=== PATIENT | male | born 2005 | race Caucasian/White ===

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

== ENCOUNTER 2024-05-27 06:17 | Emergency (ER) | payer BC, SELFPAY ==
[2024-05-27 06:18] VITALS: BP 146/93; PULSE 135; RESP 19; TEMP 37.3; O2SAT 92; BMI 40.9
--- NOTE | 2024-05-27 06:52 | EKG12_ITS ---
Test Reason : CP Blood Pressure : */* mmHG Vent. Rate : 135 BPM Atrial Rate : 135 BPM P-R Int : 134 ms QRS Dur : 82 ms QT Int : 290 ms P-R-T Axes : 75 80 38 degrees QTcB Int : 435 ms Sinus tachycardia Otherwise normal ECG Confirmed by LINDA RUSSELL, TAYLOR ([id number]), avid editor SADE BETHEA ([id number]) on 05/28/2024 10:53:10 AM Referred By: Confirmed By: TAYLOR MCKEON MD
--- NOTE | 2024-05-27 07:05 | RAD_ITS ---
EXAM: XR CHEST, 2 VIEWS CLINICAL INDICATION: cough TECHNIQUE: Frontal and lateral views of the chest. COMPARISON: 04/18/2016 FINDINGS: LUNGS AND PLEURAL SPACES: Left lower lobe and/or lingular pulmonary opacities may be pneumonia rather than atelectasis. No pneumothorax. No effusion. HEART: No significant abnormality. Cardiac silhouette not enlarged. MEDIASTINUM: Central airways and mediastinal contour are unremarkable. BONES/JOINTS: No significant abnormality. No acute fracture. SOFT TISSUES: No significant abnormality. TUBES, LINES AND DEVICES: Left-sided cardiac device. RAD/Chest PA and Lateral IMPRESSION: Left lower lobe and/or lingular pulmonary opacities may be pneumonia rather than atelectasis. Electronically Signed: Arvind Raphael DO at 8:26 EST ,
[2024-05-27 07:18] VITALS: BP 118/71; PULSE 118; RESP 17; O2SAT 94
[2024-05-27 07:19] LABS: Absolute Neutrophil Count 6.4 X10^3/uL (2.0-7.7); Basophil# 0.06 X10^3/uL; Basophil% 0.6 % (0-1); Eosinophil# 0.24 X10^3/uL; Eosinophils% 2.5 % (0-5); Hematocrit 42.6 % (40-54); Hemoglobin 14.2 g/dL (13.0-16.5); Lymphocyte % 15.3 % (19-41); Mean Corp Hgb Conc 33.3 g/dL (32-36); Mean Corpuscular Hgb 28.6 pg (27.0-32.0); Mean Corpuscular Volume 85.9 fL (80-94); Mean Platelet Vol. 11.1 fl (6.2-12.0); Monocyte# 1.55 X10^3/uL; Monocyte% 15.8 % (0-10); NRBC Flagged by Analyzer 0 % (0-5); Neutrophil # 6.41 X10^3/uL (2.7-7.7); Neutrophil % 65.6 % (47-70); POSITIVE DIFFERENTIAL YES; Platelet Count 217 K/mm3 (150-450); RBC Distribution Width CV 12.9 % (11.6-14.6); RBC Distribution Width SD 40.2 fl (35.1-43.9); Red Blood Count 4.96 M/mm3 (4.6-6.2); White Blood Count 9.8 K/mm3 (4.4-11.0)
[2024-05-27] MEDS: 0.9% Normal Saline (1000mL) 1,000 ML 999 ML IV (07:21)
[2024-05-27 07:25] LABS: Differential Indicated SCAN CRITERIA MET
[2024-05-27 07:36] LABS: Anion Gap 9 (5-15); BUN 10 mg/dL (7-18); BUN/Creat Ratio 9.5 RATIO (10-20); Calcium,Total 8.8 mg/dL (8.5-10.1); Chloride 104 mmol/L (98-107); Creatinine, Serum 1.05 mg/dL (0.70-1.30); EST Glomerular Filtration Rate 95 mL/min (>60); Est Glom Filt Rate - Afr Amer 115 mL/min (>60); Estimated Creatinine Clearance 160.89 ml/min; Glucose 113 mg/dL (74-106); Magnesium 1.8 mg/dL (1.6-2.6); Potassium 3.7 mmol/L (3.5-5.1); Sodium Level 134 mmol/L (136-145)
[2024-05-27 07:39] LABS: D-Dimer Quantitative (DVT/PE) 0.28 FEU/ug/m (0.27-0.49)
[2024-05-27 07:59] VITALS: BP 121/70; PULSE 121; RESP 19; O2SAT 94
[2024-05-27 08:34] LABS: Differential Comment SCANNED; Platelet Estimate ADEQUATE (ADEQ); Platelet Morphology LARGE; Red Cell Morphology NORM C+C NORMAL (NORM C&C)
--- NOTE | 2024-05-27 08:34 | EX.ED.DYSGE1 ---
HPI History of Present Illness Chief Complaint: Shortness of Breath Informant: patient and parent Narrative Narrative: Patient is a 19-year-old male with past medical history of asthma as well as cardiac dysrhythmia leading to spontaneous cardiac arrest requiring defibrillator placement. He states that he has had cough and congestion for the last 5 to 7 days and was recently placed on antibiotics. He states she has had a few doses of this but his shortness of breath seems to be persistent and he is noting some chest discomfort with this and therefore presents to the hospital for evaluation [facility] Medical History Orthodontic device fitting or adjustment Non-smoker Leg cramps History of echocardiogram Cardiology follow-up encounter Sudden cardiac arrest Seasonal allergies Asthma Severe headache SOB (shortness of breath) Home Medications ?Medication ?Instructions ?Recorded ?Last Taken ?Type atenolol 50 mg tablet 50 mg PO BID 10/16/18 05/27/21 History cetirizine 10 mg capsule (Zyrtec) 10 mg PO DAILY 03/17/19 Unknown History montelukast 10 mg tablet 10 mg PO DAILY 11/14/20 Unknown History (Singulair) albuterol sulfate 90 mcg/actuation 1 inh inhalation Q6H PRN SOB 05/20/21 Unknown History aerosol inhaler (ProAir HFA) doxycycline monohydrate 100 mg 100 mg PO BID 10 days #20 caps 05/25/24 Unknown Rx capsule levofloxacin 500 mg tablet 500 mg PO DAILY #7 tabs 05/27/24 Unknown Rx Allergy/AdvReac Type Severity Reaction Status Date / Time azithromycin Allergy Mild ARRYTHMIA Verified 05/27/24 06:18 amoxicillin (From Augmentin) Allergy Rash Verified 05/27/24 06:18 clavulanic acid (From Allergy Rash Verified 05/27/24 06:18 Augmentin) Penicillins Allergy Hives Verified 05/27/24 06:18 Family History Mother Diabetes Surgical History Hx of toe surgery AICD (automatic cardioverter/defibrillator) present History of tonsillectomy Social History Smoking Status: Never smoker alcohol intake: never substance use type: does not use ROS ROS ED Constitutional Constitutional ED: Denies chills or fever(s) Eyes Eyes: Denies change in vision ENT ENT ED: Reports rhinorrhea; Denies sore throat Cardiovascular Cardiovascular: Reports chest pain and racing heartbeat; Denies palpitations Respiratory/Chest Respiratory/Chest: Reports cough and dyspnea Gastrointestinal Gastrointestinal: Denies abdominal pain, diarrhea, nausea or vomiting Genitourinary Genitourinary ED: Denies dysuria Musculoskeletal Musculoskeletal: Denies back pain or myalgias Integumentary Denies rash Neurologic Neurologic: Denies headache(s) Hematologic/Lymphatic Hematologic/Lymphatic: Denies easy bleeding or easy bruising EXAM Physical Exam Const Vital Signs: 05/27/24 06:18 05/27/24 06:18 05/27/24 07:18 Temperature 99.2 F H Temperature Source Oral Pulse Rate 135 H 118 H Respiratory Rate 19 H 17 Respiratory Effort Short of Breath Respiratory Depth Normal Respiratory Pattern Normal Blood Pressure 146/93 H 118/71 Blood Pressure Mean 110 86 Pulse Ox 92 94 Oxygen Delivery Method Room Air Room Air Room Air 05/27/24 07:59 Temperature Temperature Source Pulse Rate 121 H Respiratory Rate 19 H Respiratory Effort Respiratory Depth Respiratory Pattern Blood Pressure 121/70 H Blood Pressure Mean 87 Pulse Ox 94 Oxygen Delivery Method Room Air Positive well nourished and well developed General Appearance ED: well developed; Negative for pallor HEENT HEENT Narrative: Cobblestoning noted in the posterior pharynx consistent with sinus drainage without airway edema or compromise No secondary findings to suggest infection Eyes PERRL and EOMs intact bilaterally General Eye ED: Negative for scleral icterus Neck supple and no JVD Neck Narrative: No nuchal rigidity or meningeal signs Chest Wall Chest Narrative: No bony deformity or crepitance of the chest wall No subcutaneous emphysema There is reproducible anterior chest wall pain with palpation Resp normal respiratory effort Resp Narrative: Breath sounds are slight diminished throughout and there is diffuse expiratory wheeze and faint rhonchi noted in the left lower lobe However no signs of respiratory distress Cardio regular rhythm Rate: tachycardic GI normal to inspection, nondistended, normoactive bowel sounds, non-tender, non-distended and no masses Auscultation: normoactive bowel sounds Palpation: soft Extremity normal to inspection Extremity Narrative: No asymmetric edema no pitting edema negative Homans' sign bilaterally Neuro oriented x3 and CN's II-XII intact bilaterally Sensorium / Orientation: alert Motor Exam: strength 5/5 throughout Psych Mood & Affect: anxious Skin no rashes or lesions noted General Skin Exam: Negative for jaundice or pallor MDM MDM MDM Narrative Medical decision making narrative: Patient arrived to the ER tachycardic but has a past medical history of this and otherwise is in no acute distress. History and exam is concerning for cardiac dysrhythmia versus pneumonia versus pneumothorax versus pleural effusion. Based on his history of spontaneous cardiac arrest there is also concern for electrolyte abnormality or pulmonary embolus or acute loss anemia or thyroid disorder. Basic labs were obtained and revealed no acute finding. Chest x-ray did show changes concerning for left lower lobe pneumonia. Patient report he was placed on doxycycline for a sinus infection and this should also cover lung tissue. However in order to ensure that the infection is not resistant to the Doxy I will add Levaquin. At this time after receiving breathing treatments his breath sounds have improved as well as his work of breathing and vitals have improved as well. He does not have signs of systemic infection/sepsis and laboratory studies do not show changes such as acute loss anemia acute kidney injury or electrolyte abnormality. His D-dimer is normal at 0.28 which goes against PE or dissection. Therefore at this time as he does not have respiratory distress or need for supplemental oxygen and his laboratory studies do not reveal signs of systemic infection he is otherwise safe for discharge History & Record Review Discussion w/independent historian: Patient and Family Lab Data Attestation: I reviewed the patient's lab results. Labs: Laboratory Results - last 24 hr 05/27/24 05/27/24 06:30 07:07 WBC 9.8 RBC 4.96 Hgb 14.2 Hct 42.6 MCV 85.9 MCH 28.6 MCHC 33.3 RDW Std Deviation 40.2 RDW Coeff of Sandor 12.9 Plt Count 217 MPV 11.1 Immature Gran % (Auto) 0.200 Neut % (Auto) 65.6 Lymph % (Auto) 15.3 L [place] % (Auto) 15.8 H Eos % (Auto) 2.5 Baso % (Auto) 0.6 Absolute Neuts (auto) 6.4 Absolute Lymphs (auto) 1.50 Nucleated RBC % 0 D-Dimer Quant (PE/DVT) 0.28 Sodium 134 L Potassium 3.7 Chloride 104 Carbon Dioxide 22.0 Anion Gap 9 BUN 10 Creatinine 1.05 Estim Creat Clear Calc 160.89 Est GFR (MDRD) Af Amer 115 Est GFR (MDRD) Non-Af 95 BUN/Creatinine Ratio 9.5 L Glucose 113 H Calcium 8.8 Magnesium 1.8 TSH 5.620 H Radiography Diagnostic Testing: Clinical Impression(s) from Imaging Studies Chest X-Ray 05/27/24 07:05 IMPRESSION: Left lower lobe and/or lingular pulmonary opacities may be pneumonia rather than atelectasis. Electronically Signed: Arvind Raphael DO at 8:26 EST , 2 view chest x-ray as interpreted by the emergency medicine physician reveals atelectasis versus potential pneumonia in the left lower lobe Discharge Plan Triage Chief Complaint: Shortness of Breath ED Provider: Pasquale Jon Dx/Rx/DC Orders Clinical Impression: Pneumonia, Sinus tachycardia Instructions: Treating Pneumonia, ED Pneumonia (Adult) Prescriptions: New levofloxacin 500 mg tablet 500 mg PO DAILY Qty: 7 0RF No Action Zyrtec 10 mg capsule 10 mg PO DAILY doxycycline monohydrate 100 mg capsule 100 mg PO BID 10 Days Qty: 20 0RF atenolol 50 MG tablet 50 mg PO BID montelukast [Singulair] 10 mg Tablet 10 mg PO DAILY albuterol sulfate [ProAir HFA] 90 mcg/actuation Hfa Aerosol Inhaler 1 inh INHALATION Q6H PRN (Reason: SOB) Primary Care Provider: Jose Angel Beach Referrals: Jose Angel Beach DO [Primary Care Provider] - Activity Restrictions/Additional Instructions: Your x-ray questions potential pneumonia in your left lung. Continue the doxycycline that you are prescribed from your doctor but add the Levaquin for improved antibacterial coverage. Continue all of your other medications as directed by your doctor and return to the ER should you have any further concerns or worsening of symptoms Print Language: Yi Disposition Disposition: Home, Self Care Discharge Date/Time: 05/27/24 08:42
[2024-05-27 08:36] VITALS: BP 126/71; PULSE 114; RESP 20; TEMP 36.8; O2SAT 95
[2024-05-28 15:32] LABS: Pathologist Review Reviewed
== END 2024-05-27 08:42 | disposition home or self-care (01) ==
PROVIDERS: Emergency Provider Emergency Medicine; PCP Family Medicine; Visit Provider Emergency Medicine
DX: J18.9 Pneumonia, unspecified organism (principal); R00.0 Tachycardia, unspecified; Z11.52 Encounter for screening for COVID-19; J45.909 Unspecified asthma, uncomplicated; I25.2 Old myocardial infarction; Z79.899 Other long term (current) drug therapy; Z95.810 Presence of automatic (implantable) cardiac defibrillator
CPT/HCPCS: 71046; 80048; 83735; 84443; 85025; 85379; 87631; 93005; 99283